=== PATIENT | female | born 1995 | race African-American/Black ===

== ENCOUNTER 2021-05-09 18:38 | Emergency (ER) | payer OTHER ==
[~2021-05-09] VITALS: Ht 165.1 cm; Wt 99.8 kg
[~2021-05-09 18:38] MED LIST: NAPROSYN500 MG PO
[2021-05-09 18:42] VITALS: BP 126/65
== END 2021-05-09 20:36 | disposition home or self-care (01) ==
LOC: ER 18:38
PROVIDERS: Physician Assistant
DX: J02.9 Acute pharyngitis, unspecified (principal); Z20.822 Contact with and (suspected) exposure to COVID-19; Z79.899 Other long term (current) drug therapy; Z88.1 Allergy status to other antibiotic agents